=== PATIENT | male | born 1935 | race Caucasian/White ===

== ENCOUNTER 2020-09-21 08:58 | Emergency (ER) | payer MEDICARE ==
[2020-09-21] MEDS ORDERED: Albuterol/Ipratropium 3.0-0.5 MG/3 ML Neb Soln NEB ONE (09:36)
--- NOTE | 2020-09-21 09:40 | EDM.PDOC ---
ED HPI GENERAL MEDICAL PROBLEM - General Chief Complaint: Respiratory Problem Stated Complaint: SOB Time Seen by Provider: 09/21/20 09:21 Source of Information: Reports: Patient - History of Present Illness INITIAL COMMENTS - FREE TEXT/NARRATIVE: Saurabh is an 85 y/o male who comes to the ER with SOB. He reports increasing SOB with exertion. He has had symptoms for the last 3 weeks. He has had increased s putum production and does try to cough and get the sputum up, but otherwise no cough. No fever. He denies any chest pain or edema. 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 He has been living in [place] the last few years, but he he is moving up here since he has been having more and more problems with breathing and SOB living in [place]. He thinks that the weather there makes it harder for him to breath. He has not taken any meds. - Related Data Allergies Allergy/AdvReac Type Severity Reaction Status Date / Time No Known Allergies Allergy Verified 09/21/20 09:10 Home Meds: Home Meds . [No Known Home Meds] 09/21/20 [History] Past Medical History Cardiovascular History: Reports: Other (See Below) (CBAG x 4 1996) Respiratory History: Reports: Asthma Social & Family History - Tobacco Use Tobacco Use Status *Q: Never Tobacco User ED ROS GENERAL - Review of Systems Review Of Systems: See Below Constitutional: Reports: No Symptoms HEENT: Reports: No Symptoms Respiratory: Reports: Shortness of Breath, Sputum Cardiovascular: Reports: Dyspnea on Exertion. Denies: Chest Pain, Edema, Syncope Endocrine: Reports: No Symptoms GI/Abdominal: Reports: No Symptoms : Reports: No Symptoms Musculoskeletal: Reports: No Symptoms Skin: Reports: No Symptoms Neurological: Reports: No Symptoms Psychiatric: Reports: No Symptoms Hematologic/Lymphatic: Reports: No Symptoms ED EXAM, GENERAL - Physical Exam Exam: See Below General Appearance: Alert, WD/WN (Elderly male) Eye Exam: Bilateral Eye: PERRL Ears: Normal TMs, Other (Right external ear exam normal, left external ear is partially removed and there is alot of scar tissue ntoed in the left ear and neck region) Ear Exam: Bilateral Ear: TM normal Nose: Normal Inspection, Normal Mucosa Throat/Mouth: Normal Inspection, Normal Lips, Normal Voice Head: Atraumatic, Normocephalic Neck: Normal Inspection, Supple, Non-Tender Respiratory/Chest: No Respiratory Distress, Decreased Breath Sounds (throughout, some mild barrell chest aapearance noted) Cardiovascular: Normal Peripheral Pulses, Regular Rate, Rhythm, No Murmur, No Rub GI/Abdominal: Normal Bowel Sounds, Soft (Male) Exam: Deferred Rectal (Males) Exam: Deferred Back Exam: Normal Inspection Extremities: Normal Inspection, Normal Range of Motion, Normal Capillary Refill Neurological: Alert, Oriented, CN II-XII Intact, Normal Cognition Psychiatric: Normal Affect, Normal Mood Skin Exam: Warm, Dry, Intact, Normal Color #1 Interpretation EKG Date: 09/21/20 Time: 09:50 Rhythm: A-Fib Rate (Beats/Min): 96 Marcella: Normal QRS: RBBB Comparison: NA - No Prior EKG Course - Vital Signs Text/Narrative:: 920 The patient was seen by the FUND ACCOUNTING MANAGER. Labs, EKG ordered. Favor respiratory differential at this time, but will cover him with ASA due to his history of CAD/CABG and also given him a Duoneb while we await labs. 1030 Patient received little relief from the Duoneb and still sitting on edge of bed with some mild dyspnea. 1050 OWB=[id number], Trop I=29, CBC neg, CMP acoyutc=710, EKG A fib with RBBB. [facility] contacted and case reviewed with Mining Technician Dr Thompson who advised inpatient care. Dr Coto the ER physician was consulted and the patient accepted for transfer. Awaiting bed. Patient remains stable. The patient and his son agree to the plan. Patient remained stable until departing the ER with his son for POV transfer. Last Recorded V/S: Last Vital Signs Temp 36.6 C 09/21/20 08:58 Pulse 109 H 09/21/20 08:58 Resp 20 09/21/20 08:58 BP 160/106 H 09/21/20 08:58 Pulse Ox 94 L 09/21/20 08:58 - Orders/Labs/Meds Orders: Active Orders 24 hr Category Date Time Status EKG Documentation Completion [RC] STAT Care 09/21/20 09:32 Active RT Aerosol Therapy [RC] ASDIRECTED Care 09/21/20 09:36 Active CORONAVIRUS COVID-19 RAPID [MOLEC] Stat Lab 09/21/20 11:08 Received Labs: Laboratory Tests 09/21/20 09/21/20 09/21/20 Range/Units 09:42 09:42 10:33 WBC 7.4 (4.0-10.0) x10^3/uL RBC 4.20 L (4.5-6.0) x10^6/uL Hgb 12.9 L (14.0-18.0) g/dL Hct 37.6 L (40.0-52.0) % MCV 89.5 (78.0-93.0) fL MCH 30.7 (26.0-32.0) pg MCHC 34.3 (32.0-36.0) g/dL RDW Coeff of Abdias 13.6 (10.0-15.0) % Plt Count 210 (130-400) x10^3/uL Neut % (Auto) 77.6 (50.0-80.0) % Lymph % (Auto) 14.0 L (25.0-50.0) % [place] % (Auto) 6.2 (2.0-11.0) % Eos % (Auto) 1.9 (0.0-4.0) % Baso % (Auto) 0.3 (0.2-1.2) % Sodium 139 (136-145) mmol/L Potassium 4.2 (3.5-5.1) mmol/L Chloride 102 (98-107) mmol/L Carbon Dioxide 21 (21-32) mmol/L Anion Gap 20.2 H (5-15) mmol/L BUN 16 (7-18) mg/dL Creatinine 1.3 (0.70-1.30) mg/dL Est Cr Clr Drug Dosing TNP Estimated GFR (MDRD) 52 Glucose 108 H (70-99) mg/dL Calcium 8.7 (8.5-10.1) mg/dL Corrected Calcium 9.0 (8.5-10.1) mg/dL Magnesium 2.0 (1.8-2.4) mg/dL Total Bilirubin 1.0 (0.2-1.0) mg/dL AST 16 (15-37) U/L ALT 39 (16-63) U/L Alkaline Phosphatase 65 (46-116) U/L Troponin I High Sens 29 (<=76) ng/L C-Reactive Protein 2.6 H (<=0.9) mg/dL NT-Pro-B Natriuret Pep 8320 H (<=450) pg/mL Total Protein 7.6 (6.4-8.2) g/dL Albumin 3.6 (3.4-5.0) g/dL Globulin 4.0 Albumin/Globulin Ratio 0.90 Urine Color Yellow (YELLOW) Urine Appearance Clear (CLEAR) Urine pH 5.0 (5.0-8.0) Ur Specific [place] 1.020 Urine Protein 30 H (NEGATIVE) mg/dL Urine Glucose (UA) Negative (NEGATIVE) mg/dL Urine Ketones 15 H (NEGATIVE) mg/dL Urine Occult Blood Trace-intact H (NEGATIVE) Urine Nitrite Negative (NEGATIVE) Urine Bilirubin Negative (NEGATIVE) Urine Urobilinogen 0.2 (0.2) EU/dL Ur Leukocyte Esterase Negative (NEGATIVE) Urine RBC 0-5 (NOT SEEN) /HPF Urine WBC 0-5 (NOT SEEN) /HPF Ur Squamous Epith Cells Not seen (NOT SEEN) /HPF Urine Bacteria Rare (NOT SEEN) /HPF Urine Mucus Occasional H (NOT SEEN) /LPF Meds: Medications Discontinued Medications Generic Name Dose Route Start Last Admin Trade Name Freq PRN Reason Stop Dose Admin Albuterol/Ipratropium 3 ml 09/21/20 09:36 09/21/20 09:51 Albuterol/Ipratropium 3.0-0.5 Mg/3 Ml Neb Soln NEB 09/21/20 09:37 3 ml ONETIME ONE Administration - Radiology Interpretation Free Text/Narrative:: CXR=Mild to moderate CHF, note widespread interstitial edema (See final report) Departure - Departure Time of Disposition: 11:10 Disposition: DC/Tfer to Acute Hospital 02 Condition: Good Clinical Impression: Congestive heart failure Qualifiers: Heart failure type: unspecified Heart failure chronicity: unspecified Qualified Code(s): I50.9 - Heart failure, unspecified Atrial fibrillation Qualifiers: Atrial fibrillation type: unspecified Qualified Code(s): I48.91 - Unspecified atrial fibrillation - Discharge Information *PRESCRIPTION DRUG MONITORING PROGRAM REVIEWED*: Not Applicable *COPY OF PRESCRIPTION DRUG MONITORING REPORT IN PATIENT JORGE L: Not Applicable Referrals: PCP,None [Primary Care Provider] - Forms: ED Department Discharge, Interfacility Transfer [facility] Sepsis Event Note (ED) - Evaluation Sepsis Screening Result: No Definite Risk - Focused Exam Vital Signs: Vital Signs Temp Pulse Resp BP Pulse Ox 09/21/20 08:58 36.6 C 109 H 20 160/106 H 94 L - My Orders Last 24 Hours: My Active Orders 09/21/20 09:32 EKG Documentation Completion [RC] STAT 09/21/20 09:36 RT Aerosol Therapy [RC] ASDIRECTED 09/21/20 11:08 CORONAVIRUS COVID-19 RAPID [MOLEC] Stat - Assessment/Plan Last 24 Hours: My Active Orders 09/21/20 09:32 EKG Documentation Completion [RC] STAT 09/21/20 09:36 RT Aerosol Therapy [RC] ASDIRECTED 09/21/20 11:08 CORONAVIRUS COVID-19 RAPID [MOLEC] Stat Assessment:: 1)Shortness of Breath 2)Congestive Heart Failure 3)Atrial Fibrillation, not currently anticoagulated Plan: -Transfer to [facility] via POV for inpatient admission
--- NOTE | 2020-09-21 10:08 | CR ---
[id number] RAD/RAD Chest PA or AP 1V EXAM: FRONTAL CHEST INDICATION: SHORTNESS OF BREATH. COMPARISON: None. DISCUSSION: Cardiomegaly with mild to moderate interstitial edema and small bilateral effusions consistent with congestive heart failure. Sternotomy. IMPRESSION: 1. Mild to moderate congestive heart failure. Benton Sanford MD 09/21/20 1007 Thank you for allowing us to participate in the care of your patient.
[2020-09-21 10:15] LABS: CHLORIDE,CL 102 mmol/L (98-107); SODIUM,NA 139 mmol/L (136-145)
[2020-09-21 10:18] LABS: ANION GAP 20.2 mmol/L (5-15)
== END 2020-09-21 12:18 | disposition short-term general hospital (02) ==
LOC: VM.ED 08:58
DX: I50.9 Heart failure, unspecified (principal); I48.91 Unspecified atrial fibrillation; J45.909 Unspecified asthma, uncomplicated
CPT/HCPCS: 36415; 71045; 80053; 81001; 83735; 83880; 84484; 85025; 86140; 93005; 94640; 99285-25; J7620-GY; U0002

== ENCOUNTER 2020-10-25 10:19 | Emergency (ER) | payer MEDICARE ==
[2020-10-25 10:41] VITALS: BP 154/70; PULSE 65
[2020-10-25] MEDS ORDERED: Orphenadrine 60 MG/2 ML Inj IM ONE (10:57)
--- NOTE | 2020-10-25 11:09 | EDM.PDOC ---
ED HPI GENERAL MEDICAL PROBLEM - General Chief Complaint: Back Pain or Injury Stated Complaint: LOW BACK PAIN Time Seen by Provider: 10/25/20 10:50 Source of Information: Reports: Patient History Limitations: Reports: No Limitations - History of Present Illness INITIAL COMMENTS - FREE TEXT/NARRATIVE: Saurabh is an 85 year who presents to ER with complaints of low back pain. States was lifting a heavy wrench 2 days ago, felt a pop and has had back pain since. Has had previous back surgery about 5-6 years ago. Also was hospitalized last week as had a valve replacement and pacemaker implanted. Has been feeling well since returning home. "have been taking it easy but the wrench was probably too heavy for me to be picking up". Has taken tylenol and one pain pill and that did help for a short time but is worried "something has flipped in my back". No radiation of pain down his legs. Has most pain with walking, getting up from chair. Has been wearing his back brace for 2 days. Onset: Gradual Duration: Day(s):, Constant Location: Reports: Back Quality: Reports: Ache Severity: Moderate Improves with: Reports: Medication Worsens with: Reports: Movement Context: Reports: Lifting Associated Symptoms: Reports: No Other Symptoms Lower Back Pain Score (Numeric/FACES): 8 - Related Data Allergies Allergy/AdvReac Type Severity Reaction Status Date / Time No Known Allergies Allergy Verified 10/25/20 10:43 Home Meds: Home Meds Furosemide 20 mg PO DAILY 10/25/20 [History] carvediloL [Carvedilol] 6.25 mg PO BIDMEALS 10/25/20 [History] Past Medical History Cardiovascular History: Reports: Heart Valve Replacement, Hypertension, Pacemaker Respiratory History: Reports: Asthma - Past Surgical History Cardiovascular Surgical History: Reports: Pacer, Valve Replacement Social & Family History - Tobacco Use Tobacco Use Status *Q: Never Tobacco User ED ROS GENERAL - Review of Systems Review Of Systems: See Below Constitutional: Denies: Fever, Chills, Malaise, Weakness, Fatigue, Decreased Appetite HEENT: Reports: No Symptoms Respiratory: Denies: Shortness of Breath, Cough Cardiovascular: Denies: Chest Pain, Edema, Lightheadedness Endocrine: Denies: Fatigue GI/Abdominal: Denies: Abdominal Pain, Nausea, Vomiting Musculoskeletal: Reports: Back Pain Skin: Reports: No Symptoms Neurological: Reports: No Symptoms ED EXAM,LOWER BACK PAIN/INJURY - Physical Exam Exam: See Below Exam Limited By: No Limitations General Appearance: Alert, WD/WN, No Apparent Distress Head: Normocephalic Neck: Normal Inspection, Supple, Non-Tender Respiratory/Chest: No Respiratory Distress, Lungs Clear, Normal Breath Sounds Cardiovascular: Regular Rate, Rhythm GI/Abdominal: Normal Bowel Sounds, Soft, Non-Tender Back Exam: Normal Inspection, Decreased Range of Motion (pain with flexion/extension of low back as well as rotation. Leg strength is equal and strong. ), Vertebral Tenderness (lower lumbar spine) Extremities: Normal Inspection, No Pedal Edema Course - Vital Signs Last Recorded V/S: Last Vital Signs Temp 98.3 F 10/25/20 10:30 Pulse 65 10/25/20 10:30 Resp 18 10/25/20 10:30 BP 154/70 H 10/25/20 10:30 Pulse Ox 95 10/25/20 10:30 - Orders/Labs/Meds Meds: Medications Discontinued Medications Generic Name Dose Route Start Last Admin Trade Name J Carlos PRN Reason Stop Dose Admin Hydrocodone Bitart/Acetaminophen 1 tab 10/25/20 12:21 10/25/20 12:29 Acetaminophen/Hydrocodone 325-10 Mg Tab PO 10/25/20 12:22 1 tab ONETIME ONE Administration Orphenadrine Citrate 60 mg 10/25/20 10:57 10/25/20 11:04 Orphenadrine 60 Mg/2 Ml Inj IM 10/25/20 10:58 60 mg ONETIME ONE Administration - Re-Assessments/Exams Free Text/Narrative Re-Assessment/Exam: 10/25/20 12:56 Xrays show degenerative changes, old compression fractures. No acute new findings. Patient reviewed report "needed to see for myself nothing broke". Discussed PT, would like to try pain meds and follow up with Dr. Chun if pain persists. Departure - Departure Time of Disposition: 12:57 Disposition: Home, Self-Care 01 Condition: Good Clinical Impression: Low back pain - Discharge Information *PRESCRIPTION DRUG MONITORING PROGRAM REVIEWED*: No *COPY OF PRESCRIPTION DRUG MONITORING REPORT IN PATIENT JORGE L: No Instructions: Acute Back Pain, Adult Forms: ED Department Discharge Additional Instructions: 1. Rest 2. Heat to low back 3. [place] 5/325 one tab every 6 hours as needed for severe pain, may take tylenol for lesser pain 4. Consider consult with physical therapy for treatment 5. Follow up with Dr. Chun if pain persists. Sepsis Event Note (ED) - Evaluation Sepsis Screening Result: No Definite Risk - Focused Exam Vital Signs: Vital Signs Temp Pulse Resp BP Pulse Ox 10/25/20 10:30 98.3 F 65 18 154/70 H 95
[2020-10-25] MEDS ORDERED: Acetaminophen/HYDROcodone 325-10 MG Tab PO ONE (12:21)
--- NOTE | 2020-10-25 12:53 | CR ---
[id number] RAD/RAD Lumbar Spine 4V Exam: RAD Lumbar Spine 4V Indication:BACK PAIN, NO TRAUMA, POST VALVE REPLACEMENT. Comparison: No recent imaging for comparison or correlation. MRI from 2011. Discussion/Impression: Compression deformities of the L1, L2, L3, L5 vertebral bodies. L1, L2, and L5 abnormalities were present on MRI from 2012. Spondylosis throughout the lumbar spine, including advanced L5-S1 facet joint arthropathy resulting 6 mm anterolisthesis. 5 mm degenerative anterolisthesis at L4-5 secondary to facet joint arthropathy as well. 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 Extensive calcified atherosclerotic plaque throughout the abdominal aorta and iliac arteries. Chadd Hartmann MD 10/25/20 [id number] Thank you for allowing us to participate in the care of your patient.
== END 2020-10-25 13:11 | disposition home or self-care (01) ==
LOC: VM.ED 10:19
DX: M54.5 Low back pain (principal); X50.0XXA Overexertion from strenuous movement or load, initial encounter
CPT/HCPCS: 72110; 96372; 99283-25; A9270-GY; J2360

== ENCOUNTER 2020-10-31 22:33 | Emergency (ER) | payer MEDICARE ==
[2020-10-31] MEDS ORDERED: Sodium Chloride 0.9% 10 ML Syringe FLUSH PRN (22:44)
[2020-10-31 23:35] LABS: ANION GAP 17.6 mmol/L (5-15)
[2020-10-31] MEDS ORDERED: cefTRIAXone 2 GM Vial IVPUSH ONE (23:51)
--- NOTE | 2020-10-31 23:56 | EDM.PDOC ---
ED HPI GENERAL MEDICAL PROBLEM - General Chief Complaint: Respiratory Problem Time Seen by Provider: 10/31/20 22:33 Source of Information: Reports: Patient, EMS, EMS Notes Reviewed History Limitations: Reports: No Limitations - History of Present Illness INITIAL COMMENTS - FREE TEXT/NARRATIVE: Pt. presents to ER with complaints of cough, fatigue, weakness and fever that started yesterday. Pt. recently underwent aortic valve replacement as well as pacemaker placement in September. Pt. states that symptoms have been progressively getting worse over the past day. Cough is predominently dry with occasional whitish sputum. Has not been red or purulent appearing. EMS was summoned. Pt. O2 sat on arrival was in the mid 80s. He was removed from O2 on arrival to ER and has been satting in the low 90% range. 12 lead EKG was obtained in the field, showing demand pacing. No acute ST or T wave abnormality. Pt. states that his cough is non-productive. He denies any substernal chest pain. No abdominal pain. He denies any dysuria. No rashes, sore throat or sinus congestion. Denies any nausea, vomiting, or diarrhea. Unclear if the patient had a cortes catheter placed when he was recently hospitalized. He has not had the covid 19 vaccination. Onset Date: 10/31/20 Location: Reports: Chest, Generalized - Related Data Allergies Allergy/AdvReac Type Severity Reaction Status Date / Time No Known Allergies Allergy Verified 10/25/20 10:43 Home Meds: Home Meds Furosemide 20 mg PO DAILY 10/25/20 [History] carvediloL [Carvedilol] 6.25 mg PO BIDMEALS 10/25/20 [History] Past Medical History Cardiovascular History: Reports: Heart Valve Replacement, Hypertension, Pacemaker Respiratory History: Reports: Asthma - Past Surgical History Cardiovascular Surgical History: Reports: Pacer, Valve Replacement ED ROS GENERAL - Review of Systems Review Of Systems: See Below Constitutional: Reports: No Symptoms HEENT: Reports: No Symptoms Respiratory: Reports: Shortness of Breath, Cough, Sputum Cardiovascular: Reports: Other (See HPI) Endocrine: Reports: No Symptoms GI/Abdominal: Reports: No Symptoms : Reports: No Symptoms Musculoskeletal: Reports: No Symptoms Skin: Reports: No Symptoms Neurological: Reports: Weakness Psychiatric: Reports: No Symptoms Hematologic/Lymphatic: Reports: No Symptoms Immunologic: Reports: No Symptoms ED EXAM, GENERAL - Physical Exam Exam: See Below Exam Limited By: No Limitations General Appearance: Alert, WD/WN, No Apparent Distress Eye Exam: Bilateral Eye: EOMI, PERRL Throat/Mouth: Normal Inspection, Normal Lips, Normal Gums, Normal Oropharynx, No Airway Compromise Head: Atraumatic, Normocephalic Neck: Normal Inspection, Supple, Non-Tender, Full Range of Motion Respiratory/Chest: No Accessory Muscle Use, Chest Non-Tender, Decreased Breath Sounds Cardiovascular: Normal Peripheral Pulses, Regular Rate, Rhythm, No Edema, No JVD Peripheral Pulses: 4+: Radial (R) GI/Abdominal: Soft, Non-Tender, No Distention, No Mass (Male) Exam: Deferred Rectal (Males) Exam: Deferred Back Exam: Normal Inspection, Full Range of Motion Extremities: Normal Inspection, Normal Range of Motion, Non-Tender, No Pedal Edema, Normal Capillary Refill Neurological: Alert, Oriented, CN II-XII Intact, Normal Cognition, Normal Reflexes, No Motor/Sensory Deficits Psychiatric: Normal Affect, Normal Mood Skin Exam: Warm, Dry, Intact, No Rash Course - Vital Signs Last Recorded V/S: Last Vital Signs Temp 39.2 C H 10/31/20 22:33 Pulse 78 10/31/20 22:33 Resp 29 H 10/31/20 22:33 BP 149/62 H 10/31/20 22:33 Pulse Ox 93 L 10/31/20 22:33 - Orders/Labs/Meds Orders: Active Orders 24 hr Category Date Time Status Cardiac Monitoring [RC] CONTINUOUS Care 10/31/20 22:46 Active Chest 1V Frontal [CR] Stat Exams 10/31/20 22:46 Taken CULTURE BLOOD [BC] Stat Lab 10/31/20 22:59 Received CULTURE BLOOD [BC] Stat Lab 10/31/20 23:02 Received UA RFX MARLYN AND CULT IF INDIC [URIN] Stat Lab 10/31/20 23:56 Ordered Sodium Chloride 0.9% [Saline Flush] Med 10/31/20 22:44 Active 10 ml FLUSH ASDIRECTED PRN Blood Culture x2 Reflex Set [OM.PC] Stat Oth 10/31/20 22:47 Ordered Peripheral IV Insertion Adult [OM.PC] Routine Oth 10/31/20 22:47 Ordered Medication Orders Sodium Chloride (Sodium Chloride 0.9% 10 Ml Syringe) 10 ml FLUSH ASDIRECTED PRN PRN Reason: Keep Vein Open Labs: Laboratory Tests 10/31/20 10/31/20 10/31/20 Range/Units 22:59 22:59 22:59 WBC 15.4 H (4.0-10.0) x10^3/uL RBC 3.79 L (4.5-6.0) x10^6/uL Hgb 11.5 L (14.0-18.0) g/dL Hct 33.8 L (40.0-52.0) % MCV 89.2 (78.0-93.0) fL MCH 30.3 (26.0-32.0) pg MCHC 34.0 (32.0-36.0) g/dL RDW Coeff of Abdias 14.0 (10.0-15.0) % Plt Count 156 (130-400) x10^3/uL Neut % (Auto) 94.6 H (50.0-80.0) % Lymph % (Auto) 1.9 L (25.0-50.0) % [place] % (Auto) 3.3 (2.0-11.0) % Eos % (Auto) 0.1 (0.0-4.0) % Baso % (Auto) 0.1 L (0.2-1.2) % PT 12.1 (9.9-12.5) SEC INR 1.1 L (2.0-3.5) APTT (25.6-32.8) SEC Sodium 134 L (136-145) mmol/L Potassium 4.6 (3.5-5.1) mmol/L Chloride 97 L (98-107) mmol/L Carbon Dioxide 24 (21-32) mmol/L Anion Gap 17.6 H (5-15) mmol/L BUN 19 H (7-18) mg/dL Creatinine 1.5 H (0.70-1.30) mg/dL Est Cr Clr Drug Dosing 31.90 mL/min Estimated GFR (MDRD) 44 Glucose 122 H (70-99) mg/dL Lactic Acid (0.4-2.0) mmol/L Calcium 8.7 (8.5-10.1) mg/dL Corrected Calcium 8.9 (8.5-10.1) mg/dL Magnesium 1.8 (1.8-2.4) mg/dL Total Bilirubin 1.4 H (0.2-1.0) mg/dL AST 25 (15-37) U/L ALT 26 (16-63) U/L Alkaline Phosphatase 72 (46-116) U/L Troponin I High Sens 120 H* (<=76) ng/L C-Reactive Protein 8.3 H (<=0.9) mg/dL NT-Pro-B Natriuret Pep 9558 H (<=450) pg/mL Total Protein 7.5 (6.4-8.2) g/dL Albumin 3.7 (3.4-5.0) g/dL Globulin 3.8 Albumin/Globulin Ratio 0.97 SARS CoV-2 RNA Rapid NICOLE (NEGATIVE) 10/31/20 10/31/20 10/31/20 Range/Units 22:59 22:59 23:05 WBC (4.0-10.0) x10^3/uL RBC (4.5-6.0) x10^6/uL Hgb (14.0-18.0) g/dL Hct (40.0-52.0) % MCV (78.0-93.0) fL MCH (26.0-32.0) pg MCHC (32.0-36.0) g/dL RDW Coeff of Abdias (10.0-15.0) % Plt Count (130-400) x10^3/uL Neut % (Auto) (50.0-80.0) % Lymph % (Auto) (25.0-50.0) % [place] % (Auto) (2.0-11.0) % Eos % (Auto) (0.0-4.0) % Baso % (Auto) (0.2-1.2) % PT (9.9-12.5) SEC INR (2.0-3.5) APTT 29.0 (25.6-32.8) SEC Sodium (136-145) mmol/L Potassium (3.5-5.1) mmol/L Chloride (98-107) mmol/L Carbon Dioxide (21-32) mmol/L Anion Gap (5-15) mmol/L BUN (7-18) mg/dL Creatinine (0.70-1.30) mg/dL Est Cr Clr Drug Dosing mL/min Estimated GFR (MDRD) Glucose (70-99) mg/dL Lactic Acid 1.9 (0.4-2.0) mmol/L Calcium (8.5-10.1) mg/dL Corrected Calcium (8.5-10.1) mg/dL Magnesium (1.8-2.4) mg/dL Total Bilirubin (0.2-1.0) mg/dL AST (15-37) U/L ALT (16-63) U/L Alkaline Phosphatase (46-116) U/L Troponin I High Sens (<=76) ng/L C-Reactive Protein (<=0.9) mg/dL NT-Pro-B Natriuret Pep (<=450) pg/mL Total Protein (6.4-8.2) g/dL Albumin (3.4-5.0) g/dL Globulin Albumin/Globulin Ratio SARS CoV-2 RNA Rapid NICOLE Negative (NEGATIVE) Meds: Medications Generic Name Dose Route Start Last Admin Trade Name Freq PRN Reason Stop Dose Admin Sodium Chloride 10 ml 10/31/20 22:44 Sodium Chloride 0.9% 10 Ml Syringe FLUSH ASDIRECTED PRN Keep Vein Open Discontinued Medications Generic Name Dose Route Start Last Admin Trade Name Freq PRN Reason Stop Dose Admin Ceftriaxone Sodium 2 gm 10/31/20 23:51 11/01/20 00:00 Ceftriaxone 2 Gm Vial IVPUSH 10/31/20 23:52 2 gm STAT ONE Administration Departure - Departure Time of Disposition: 00:24 Disposition: DC/Tfer to [facility] 02 Clinical Impression: Shortness of breath - Discharge Information Referrals: Milagros Chun DO [Primary Care Provider] - Forms: ED Department Discharge, Interfacility Transfer [facility] Sepsis Event Note (ED) - Evaluation Sepsis Screening Result: Possible Sepsis Risk - Focused Exam Vital Signs: Vital Signs Temp Pulse Resp BP Pulse Ox 10/31/20 22:33 39.2 C H 78 29 H 149/62 H 93 L - Problem List Review Problem List Initiated/Reviewed/Updated: Yes - My Orders Last 24 Hours: My Active Orders 10/31/20 22:44 Sodium Chloride 0.9% [Saline Flush] 10 ml FLUSH ASDIRECTED PRN 10/31/20 22:46 Cardiac Monitoring [RC] CONTINUOUS Chest 1V Frontal [CR] Stat 10/31/20 22:47 Blood Culture x2 Reflex Set [OM.PC] Stat Peripheral IV Insertion Adult [OM.PC] Routine 10/31/20 22:59 CULTURE BLOOD [BC] Stat 10/31/20 23:02 CULTURE BLOOD [BC] Stat 10/31/20 23:56 UA RFX MARLYN AND CULT IF INDIC [URIN] Stat - Assessment/Plan Last 24 Hours: My Active Orders 10/31/20 22:44 Sodium Chloride 0.9% [Saline Flush] 10 ml FLUSH ASDIRECTED PRN 10/31/20 22:46 Cardiac Monitoring [RC] CONTINUOUS Chest 1V Frontal [CR] Stat 10/31/20 22:47 Blood Culture x2 Reflex Set [OM.PC] Stat Peripheral IV Insertion Adult [OM.PC] Routine 10/31/20 22:59 CULTURE BLOOD [BC] Stat 10/31/20 23:02 CULTURE BLOOD [BC] Stat 10/31/20 23:56 UA RFX MARLYN AND CULT IF INDIC [URIN] Stat Plan: No obvious infiltrate was noted on chest xray. Cause of his fever and elevated are unclear at this point. UA is pending. He is not experiencing any abdominal pain or dysuria. Discussed case with Dr. Romero at [facility]. Pt. will be transferred there for further workup. His troponin is elevated which may still be due to his surgery. ProBNP was quite elevated. No obvious fluid overload was noted. Pt. will be given a dose of IV rocephin prior to departure. He was also given a gram of acetaminophen. Pt. lives by himself in [place], [place]. Nearest son is in [place]. He has a very close friend in [place] who does his shopping for his and brings him to appointments. They are his closest contacts. Friend's name is Micaela Nguyen. Phone # is [phone]. She will be watching the patient's residence/pet.
[2020-11-01] MEDS ORDERED: Sodium Chloride 0.9% 1,000 ML IV ONE (00:18)
[2020-11-01] MEDS ORDERED: Acetaminophen 500 MG Tab PO ONE (00:24)
--- NOTE | 2020-11-01 08:06 | CR ---
[id number] RAD/RAD Chest Portable EXAM: PORTABLE CHEST RADIOGRAPH. INDICATION: SHORTNESS OF BREATH COMPARISON: CORRELATION IS MADE WITH SEPTEMBER 21, 2020 FINDINGS: There is borderline edema The cardiac silhouette is stable Median sternotomy sutures and the pacemaker are seen IMPRESSION: BORDERLINE EDEMA Jluis Villarreal MD 11/01/20 0804 Thank you for allowing us to participate in the care of your patient.
== END 2020-11-01 01:01 | disposition short-term general hospital (02) ==
LOC: VM.ED 22:33
DX: R06.02 Shortness of breath (principal); I10 Essential (primary) hypertension; J45.909 Unspecified asthma, uncomplicated; Z95.2 Presence of prosthetic heart valve; Z95.0 Presence of cardiac pacemaker; Z79.899 Other long term (current) drug therapy; Z20.822 Contact with and (suspected) exposure to COVID-19
CPT/HCPCS: 36415; 71045; 80053; 83605; 83735; 83880; 84484; 85025; 85610; 85730; 86140; 87040; 87077; 87186; 96374; 99284; 99285-25; A9270-GY; J0696; J7030; U0002

== ENCOUNTER 2022-03-27 10:19 | Emergency (ER) | payer MEDICARE ==
[2022-03-27 11:28] LABS: ANION GAP 14.4 mmol/L (5-15); CHLORIDE,CL 100 mmol/L (98-107); ESTIMATED GFR 53 mL/min (>=60); SODIUM,NA 133 mmol/L (136-145)
[2022-03-27] MEDS: Furosemide 40 MG/4 ML VIAL IV ONE (12:31)
[2022-03-27] MEDS: Pantoprazole 40 MG in Sodium Chloride 0.9% 100 ML IV SCH (15:45)
== END 2022-03-27 16:20 | disposition short-term general hospital (02) ==
LOC: VM.ED 10:19
DX: I11.0 Hypertensive heart disease with heart failure (principal); I50.9 Heart failure, unspecified; I48.91 Unspecified atrial fibrillation; D64.9 Anemia, unspecified; J45.909 Unspecified asthma, uncomplicated; Z87.891 Personal history of nicotine dependence; Z79.899 Other long term (current) drug therapy
CPT/HCPCS: 36415; 36430; 71046; 80053; 83540; 83550; 83880; 85025; 86140; 86850; 86900; 86901; 86920; 86922; 93005; 93010; 96365; 96375; 99285; 99285-25; C9113; J1940; P9016

== ENCOUNTER 2022-07-28 09:15 | Emergency (ER) | payer MEDICARE, OTHER ==
[2022-07-28 10:08] LABS: ANION GAP 17.9 mmol/L (5-15); CHLORIDE,CL 106 mmol/L (98-107); ESTIMATED GFR 53 mL/min (>=60); SODIUM,NA 142 mmol/L (136-145)
[2022-07-28] MEDS ORDERED: Pantoprazole 40 MG Vial IVPUSH ONE (10:34)
[2022-07-28] MEDS ORDERED: Lactated Ringers 500 ML IV ONE (10:43)
[2022-07-28] MEDS ORDERED: Pantoprazole 40 MG in Sodium Chloride 0.9% 100 ML IV SCH (10:45)
== END 2022-07-28 12:22 | disposition short-term general hospital (02) ==
LOC: VM.ED 09:15
DX: I48.0 Paroxysmal atrial fibrillation (principal); I11.0 Hypertensive heart disease with heart failure; I50.9 Heart failure, unspecified; D64.9 Anemia, unspecified; Z95.0 Presence of cardiac pacemaker
CPT/HCPCS: 36430; 71046; 80053; 82728; 83540; 83550; 85025; 86850; 86900; 86901; 86920; 86922; 93005; 96365; 96376; 99284; 99285; C9113; J3490; J7120; P9016

== ENCOUNTER 2022-08-25 10:11 | Emergency (ER) | payer MEDICARE ==
[2022-08-25 11:15] LABS: CHLORIDE,CL 105 mmol/L (98-107); SODIUM,NA 141 mmol/L (136-145)
[2022-08-25 11:17] LABS: ANION GAP 13.2 mmol/L (5-15); ESTIMATED GFR 58 mL/min (>=60)
== END 2022-08-25 17:45 | disposition home or self-care (01) ==
LOC: VM.ED 10:11
DX: D64.9 Anemia, unspecified (principal); I48.91 Unspecified atrial fibrillation; I10 Essential (primary) hypertension; J45.909 Unspecified asthma, uncomplicated
CPT/HCPCS: 36415; 36430; 80053; 85025; 86850; 86900; 86901; 86920; 86922; 99284; P9016

== ENCOUNTER 2022-09-10 11:37 | Emergency (ER) | payer OTHER, MEDICARE ==
[2022-09-10] MEDS ORDERED: Sodium Chloride 0.9% 10 ML Syringe FLUSH PRN (11:42)
[2022-09-10] MEDS ORDERED: Furosemide 40 MG/4 ML VIAL IV ONE (11:57)
[2022-09-10] MEDS ORDERED: Albuterol/Ipratropium 3.0-0.5 MG/3 ML Neb Soln NEB ONE (11:57)
[2022-09-10 12:08] LABS: BASOPHILS PERCENT AUTO 0.3 % (0.2-1.2); EOSINOPHILS ABSOLUTE AUTO 0.1 x10^3/uL (0.0-0.5); EOSINOPHILS PERCENT AUTO 2.3 % (0.0-4.0); HEMATOCRIT 25.2 % (40.0-52.0); HEMOGLOBIN 7.7 g/dL (14.0-18.0); IMMATURE GRAN ABSOLUTE AUTO 0.01 x10^3/uL (0.00-0.07); MEAN CORPUSCULAR HGB CONC 30.6 g/dL (32.0-36.0); MEAN CORPUSCULAR VOLUME 91.6 fL (78.0-93.0); MONOCYTES ABSOLUTE AUTO 0.5 x10^3/uL (0.0-0.8); MONOCYTES PERCENT AUTO 7.7 % (2.0-11.0); NEUTROPHILS ABSOLUTE AUTO 4.5 x10^3/uL (1.8-7.7); NEUTROPHILS PERCENT AUTO 73.5 % (50.0-80.0); RED BLOOD CELL COUNT 2.75 x10^6/uL (4.5-6.0); WHITE BLOOD CELL COUNT,WBC 6.1 x10^3/uL (4.0-10.0)
[2022-09-10 12:22] LABS: PLATELET COUNT,PLT 197 x10^3/uL (130-400)
[2022-09-10 12:39] LABS: A/G RATIO 0.84; ALANINE AMINOTRANSFERASE,ALT 19 U/L (16-63); ALBUMIN 3.2 g/dL (3.4-5.0); ALKALINE PHOSPHATASE 71 U/L (46-116); ASPARTATE AMNIOTRANSFERASE,AST 20 U/L (15-37); BILIRUBIN TOTAL 0.3 mg/dL (0.2-1.0); BLOOD UREA NITROGEN,BUN 17 mg/dL (7-18); CALCIUM 8.5 mg/dL (8.5-10.1); CARBON DIOXIDE,CO2 24 mmol/L (21-32); CHLORIDE,CL 106 mmol/L (98-107); CREATININE 1.2 mg/dL (0.70-1.30); GLUCOSE RANDOM 132 mg/dL (70-99); POTASSIUM,K 4.3 mmol/L (3.5-5.1); PRO B-TYPE NATRIUR PEPT,BNPPRO 3536 pg/mL (<=450); SODIUM,NA 141 mmol/L (136-145)
[2022-09-10 12:40] LABS: ANION GAP 15.3 mmol/L (5-15); ESTIMATED GFR 58 mL/min (>=60)
== END 2022-09-10 13:21 | disposition home or self-care (01) ==
LOC: VM.ED 11:37
DX: I11.0 Hypertensive heart disease with heart failure (principal); I50.9 Heart failure, unspecified; I48.91 Unspecified atrial fibrillation; J45.909 Unspecified asthma, uncomplicated; Z95.5 Presence of coronary angioplasty implant and graft
CPT/HCPCS: 71045; 80053; 83880; 84484; 85025; 93005; 94640; 96374; 99285-25; J1940; J7620-GY